=== PATIENT | female | born 1980 | race Caucasian/White ===

== ENCOUNTER 2021-08-28 18:46 | Emergency (ER) | payer SELFPAY ==
--- NOTE | 2021-08-28 20:39 | RAD REPORT ---
EXAM DESCRIPTION: CT - Head Brain Wo Cont - 08/28/2021 8:29 pm CLINICAL HISTORY: SEIZURE COMPARISON: No comparisons TECHNIQUE: Axial 5 mm thick images of the head were obtained without IV contrast. All CT scans are performed using dose optimization technique as appropriate and may include automated exposure control or mA/KV adjustment according to patient size. FINDINGS: No intracranial hemorrhage, mass, edema or shift of mid-line structures. No acute infarcti on changes seen. No abnormal extra-axial fluid collections. Ventricles are normal. Mastoid air cells and visualized portions of the paranasal sinuses are clear. No acute bony findings. IMPRESSION: Negative non-contrast CT head examination.
[2021-08-28 21:00] LABS: Barbiturates NEGATIVE (NEGATIVE); Benzodiazepines NEGATIVE (NEGATIVE); Cocaine NEGATIVE (NEGATIVE); METHAMPHETAM NEGATIVE (NEGATIVE); Methadone NEGATIVE (NEGATIVE); Opiates NEGATIVE (NEGATIVE); Phencyclidine NEGATIVE (NEGATIVE); THC Cannibis POSITIVE (NEGATIVE)
[2021-08-28 21:11] LABS: Absolute Lymphocytes (CBC) 2.8 K/uL (0.7-4.9); Hematocrit 40.6 % (36.0-45.0); Lymphocytes % 23.9 % (15.3-44.8); MPV 9.5 fL (7.6-11.3); RBC Red Blood Cell Count 4.63 M/uL (3.86-4.86)
[2021-08-28 21:16] LABS: Protime INR 0.97
[2021-08-28 21:18] LABS: Urine Blood 2+ (Negative); Urine Glucose Negative (Negative); Urine Protein Negative (Negative); Urine Specific Gravity 1.025 (1.005-1.030); Urine pH 6.5 (5.0-7.0)
[2021-08-28 21:21] LABS: ALT/SGPT 22 U/L (12-78); AST/SGOT 10 U/L (15-37); Albumin 3.9 g/dL (3.4-5.0); Alkaline Phosphatase 121 U/L (45-117); BUN Blood Urea Nitrogen 10 mg/dL (7-18); Bicarbonate 32 mmol/L (21-32); Bilirubin Total 0.2 mg/dL (0.2-1.0); Glucose Level 103 mg/dL (74-106); Protein, Total 7.2 g/dL (6.4-8.2); Sodium Level 138 mmol/L (136-145)
[2021-08-28 21:26] LABS: Bilirubin Direct < 0.1 mg/dL (0-0.2)
[2021-08-28 21:50] LABS: SARS-COV-2 RT PCR NEGATIVE (NEGATIVE)
[2021-08-28 22:21] LABS: Urine Specific Gravity/Preg 1.025 (1.005-1.030)
[2021-08-28] MEDS ORDERED: NA CHLORIDE 0.9% 0 ML ONE (23:32)
[2021-08-28] MEDS ORDERED: KETOROLAC 30 MG/ML INJ ONE (23:32)
[2021-08-28] MEDS ORDERED: ONDANSETRON 4 MG/2 ML VIAL ONE (23:33)
[2021-08-28] MEDS ORDERED: CEFTRIAXONE 1000 MG/VIAL ONE (23:52)
--- NOTE | 2021-08-28 23:57 | EDPHYS ---
Physician Documentation [facility] Name: Gisela Teague Age: 40 yrs Sex: Female : 1980 Arrival Date: 08/28/2021 Time: 18:47 Bed 11 Private MD: ED Physician Naif Barakat HPI: 08/28 20:11 This 40 yrs old Female presents to ER via Ambulatory with complaints of Probable mh7 Seizure. 20:12 The patient presents with a history of multiple seizures, a total of 3. Character of mh7 seizure(s): Loss of consciousness: the patient experienced loss of consciousness, brief, Motor activity: generalized, shaking all over, Incontinence: none, Apnea: the patient did not experience apnea, Circulation: the patient did not experience evidence of pulse disturbance, Eye movements: are unknown. Seizure onset: 2 weeks ago. Context: the seizure(s) was witnessed, by family, , occurred at home, occurred while the patient was lying down, Contributing factors: suspected or documented drug use, marijuana. Seizure Hx: the patient has no previous seizure history. Associated injury: The patient did not suffer any apparent associated injury. Current symptoms: Currently, the patient is not experiencing any symptoms, the patient feels back to baseline. The patient has not experienced similar symptoms in the past. 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 - Social history:: Smoking status: Patient denies any tobacco usage or history of. ROS: 20:12 Constitutional: Negative for fever, chills, and weight loss, Eyes: Negative for injury, mh7 pain, redness, and discharge, ENT: Negative for injury, pain, and discharge, Neck: Negative for injury, pain, and swelling, Cardiovascular: Negative for chest pain, palpitations, and edema, Respiratory: Negative for shortness of breath, cough, wheezing, and pleuritic chest pain, Abdomen/GI: Negative for abdominal pain, nausea, vomiting, diarrhea, and constipation, Back: Negative for injury and pain, : Negative for injury, bleeding, discharge, and swelling, MS/Extremity: Negative for injury and deformity, Skin: Negative for injury, rash, and discoloration, Psych: Negative for depression, anxiety, suicide ideation, homicidal ideation, and hallucinations, Allergy/Immunology: Negative for hives, rash, and allergies, Endocrine: Negative for neck swelling, polydipsia, polyuria, polyphagia, and marked weight changes, Hematologic/Lymphatic: Negative for swollen nodes, abnormal bleeding, and unusual bruising. Exam: 20:12 Constitutional: This is a well developed, well nourished patient who is awake, alert, mh7 and in no acute distress. Head/Face: Normocephalic, atraumatic. Eyes: Pupils equal round and reactive to light, extra-ocular motions intact. Lids and lashes normal. Conjunctiva and sclera are non-icteric and not injected. Cornea within normal limits. Periorbital areas with no swelling, redness, or edema. Neck: Trachea midline, no thyromegaly or masses palpated, and no cervical lymphadenopathy. Supple, full range of motion without nuchal rigidity, or vertebral point tenderness. No Meningismus. Chest/axilla: Normal chest wall appearance and motion. Nontender with no deformity. No lesions are appreciated. Cardiovascular: Regular rate and rhythm with a normal S1 and S2. No gallops, murmurs, or rubs. Normal PMI, no JVD. No pulse deficits. Respiratory: Lungs have equal breath sounds bilaterally, clear to auscultation and percussion. No rales, rhonchi or wheezes noted. No increased work of breathing, no retractions or nasal flaring. Abdomen/GI: Soft, non-tender, with normal bowel sounds. No distension or tympany. No guarding or rebound. No evidence of tenderness throughout. Back: No spinal tenderness. No costovertebral tenderness. Full range of motion. Skin: Warm, dry with normal turgor. Normal color with no rashes, no lesions, and no evidence of cellulitis. MS/ Extremity: Pulses equal, no cyanosis. Neurovascular intact. Full, normal range of motion. Neuro: Awake and alert, GCS 15, oriented to person, place, time, and situation. Cranial nerves II-XII grossly intact. Motor strength 5/5 in all extremities. Sensory grossly intact. Cerebellar exam normal. Normal gait. Psych: Awake, alert, with orientation to person, place and time. Behavior, mood, and affect are within normal limits. Vital Signs: 19:04 BP 134 / 94; Pulse 84; Resp 18; Temp 99(T); Pulse Ox 100% on R/A; Weight 86.55 kg (M); al4 Height 5 ft. 3 in. (160.02 cm) (R); Pain 0/10; 20:09 BP 139 / 90; Pulse 79; Resp 16; Temp 98.9(O); Pulse Ox 100% on R/A; Pain 0/10; fu 22:36 BP 125 / 77; Pulse 66; Resp 16; Temp 97.7(TE); Pulse Ox 95% on R/A; Pain 0/10; fu 23:56 BP 132 / 90; Pulse 84; Resp 16; Pulse Ox 99% on R/A; Pain 0/10; fu 19:04 Body Mass Index 33.80 (86.55 kg, 160.02 cm) al4 Edward Coma Score: 19:08 Eye Response: spontaneous(4). Verbal Response: oriented(5). Motor Response: obeys al4 commands(6). Total: 15. MDM: 23:53 Differential diagnosis: drug overdose, seizure, TIA. Data reviewed: vital signs, nurses [facility] notes, lab test result(s), CBC, electrolytes, urinalysis, urine drug screen, UPT: negative EKG, radiologic studies, CT scan. Data interpreted: Pulse oximetry: on room air is 97 %. Interpretation: normal. Counseling: I had a detailed discussion with the patient and/or guardian regarding: the historical points, exam findings, and any diagnostic results supporting the discharge/admit diagnosis, lab results, radiology results, the need for outpatient follow up, a neurologist, to return to the emergency department if symptoms worsen or persist or if there are any questions or concerns that arise at home. Response to treatment: the patient's symptoms have resolved after treatment, the patient's blood pressure is in an acceptable range, mental status has returned to baseline, the patient no longer shows bradycardia, the patient is not short of breath, the patient is not tachycardic, the patient's pain is gone, the patient's temperature has normalized, the patient is now symptom free. 23:[address] [facility] 08/28 20:11 Order name: Acetaminophen [facility] 08/28 20:11 Order name: Basic Metabolic Panel [facility] 08/28 20:11 Order name: CBC with Diff [facility] 08/28 20:11 Order name: ETOH Level [facility] 08/28 20:11 Order name: Hepatic Function [facility] 08/28 20:11 Order name: PT-INR [facility] 08/28 20:11 Order name: Ptt, Activated [facility] 08/28 20:11 Order name: Salicylate [facility] 08/28 20:11 Order name: Urine Drug Screen; Complete Time: : [facility] 08/28 20:11 Order name: COVID-19/FLU A+B (Document "Date of Onset" if Symptomatic); Complete Time: [facility] :08/28 20:11 Order name: Acetaminophen Level; Complete Time: 23: [facility] 08/28 20:11 Order name: Basic Metabolic Panel; Complete Time: 23: [facility] 08/28 20:11 Order name: CBC with Automated Diff; Complete Time: : [facility] 08/28 20:11 Order name: Alcohol Serum/Plasma; Complete Time: 23: [facility] 08/28 20:11 Order name: EKG; Complete Time: 20:11 [facility] 08/28 20:11 Order name: EKG - Nurse/Tech; Complete Time: 22:25 [facility] 08/28 20:11 Order name: IV Saline Lock; Complete Time: 20:49 [facility] 08/28 20:11 Order name: Labs collected and sent; Complete Time: 20:49 [facility] 08/28 20:11 Order name: Urine Dipstick-Ancillary (obtain specimen); Complete Time: 21:27 [facility] 08/28 20:11 Order name: CT Head Brain wo Cont; Complete Time: 20:57 [facility] 08/28 20:11 Order name: Liver (Hepatic) Function; Complete Time: 23: [facility] 08/28 20:11 Order name: Protime (+INR); Complete Time: 21:23 [facility] 08/28 20:11 Order name: PTT, Activated Partial Thromb; Complete Time: : [facility] 08/28 20:11 Order name: Salicylates Level; Complete Time: 21: [facility] 08/28 21:18 Order name: Urine Dipstick-Ancillary; Complete Time: : [facility] 08/28 21:27 Order name: Urine --Ancillary (enter results); Complete Time: 23:26 mw2 08/28 20:14 Order name: Urine Test (obtain specimen); Complete Time: 21:27 [facility] Administered Medications: 23:40 Not Given (Patient Refused): NS 0.9% 1000 ml IV at 1 bolus Per protocol; 1000 mL bolus fu 23:40 Not Given (Patient Refused): Ketorolac 15 mg IVP once fu 23:41 Not Given (Patient Refused): Zofran (Ondansetron) 4 mg IVP once; over 2 minutes fu 23:55 Drug: Rocephin (cefTRIAXone) 1 grams Route: IV; Rate: per protocol; Site: right fu antecubital; Disposition Summary: 08/28/21 23:56 Discharge Ordered Location: Home [facility] Problem: new [facility] Symptoms: have improved [facility] Condition: Stable [facility] Diagnosis - Cannabis abuse [facility] - Other seizures - Possible [facility] - UTI/ Urinary tract infection, site not specified [facility] Followup: [facility] - With: Private Physician - When: 1 - 2 days - Reason: Worsening of condition, Recheck today's complaints, Continuance of care, Re-evaluation by your physician Followup: [facility] - With: Cam Hart MD - When: 1 - 2 days - Reason: Worsening of condition, Recheck today's complaints Discharge Instructions: - Discharge Summary Sheet [facility] - Cannabis Use Disorder [facility] - Urinary Tract Infection, Adult, [id number] [facility] - Seizure, Adult, [id number] [facility] Forms: - Medication Reconciliation Form [facility] - Thank You Letter [facility] - Antibiotic Education [facility] - Prescription Opioid Use [facility] Prescriptions: - Bactrim DS 800-160 mg Oral Tablet - take 1 tablet by ORAL route every 12 hours for 7 days; 14 tablet; Refills: 0, [facility] Product Selection Permitted Signatures: Dispatcher [employer] EDJose Alfredo James RN RN Naif Aldrich MD MD [facility] Nestor Morrell
--- NOTE | 2021-08-28 23:57 | ER ---
Nurse's Notes [facility] Name: Gisela Teague Age: 40 yrs Sex: Female : 1980 Arrival Date: 08/28/2021 Time: 18:47 Bed 11 Private MD: Diagnosis: Cannabis abuse;Other seizures-Possible;UTI/ Urinary tract infection, site not specified Presentation: 08/28 19:04 Chief complaint: Patient states: "I have had three seizures. This past Friday, al4 yesterday, and two weeks ago on Friday." Patient states no history of seizures. Coronavirus screen: Vaccine status: Patient reports receiving the 2nd dose of the covid vaccine. Moderna. Ebola Screen: No symptoms or risks identified at this time. Initial Sepsis Screen: Does the patient meet any 2 criteria? No. Patient's initial sepsis screen is negative. Does the patient have a suspected source of infection? No. Patient's initial sepsis screen is negative. Risk Assessment: Do you want to hurt yourself or someone else? Patient reports no desire to harm self or others. Onset of symptoms was August 19, 2021. 19:04 Method Of Arrival: Ambulatory al4 19:04 Acuity: JUVENAL 3 al4 Triage Assessment: 19:08 General: Appears in no apparent distress. comfortable, Behavior is calm, cooperative. al4 General:. Pain: Denies pain. EENT: No signs and/or symptoms were reported regarding the EENT system. Denies blurred vision. Neuro: Level of Consciousness is awake, alert, obeys commands, Oriented to person, place, time, situation. Cardiovascular: Capillary refill < 3 seconds Patient's skin is warm and dry. Respiratory: Airway is patent Respiratory effort is even, unlabored, Respiratory pattern is regular, symmetrical. Musculoskeletal: Range of motion: intact in all extremities. 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 - Social history:: Smoking status: Patient denies any tobacco usage or history of. Screenin:45 Abuse screen: Denies threats or abuse. Nutritional screening: No deficits noted. fu Tuberculosis screening: No symptoms or risk factors identified. Fall Risk None identified. Assessment: 19:41 General: Appears in no apparent distress. comfortable, Behavior is calm, cooperative, fu appropriate for age, Denies fever, feeling ill, fatigue, chills. Pain: Denies pain. 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 Gait is steady, Speech is normal, Facial symmetry appears normal. Neuro: Reports 3 seizures last was yesterday.. Cardiovascular: Capillary refill < 3 seconds Chest pain is denied. Respiratory: Respiratory effort is even, unlabored, Respiratory pattern is regular. GI: No signs and/or symptoms were reported involving the gastrointestinal system. Derm: Skin is intact, is healthy with good turgor. 20:40 Reassessment: Patient and/or family updated on plan of care and expected duration. Pain fu level reassessed. Patient is alert, oriented x 3, equal unlabored respirations, skin warm/dry/pink. 21:50 Reassessment: No changes from previously documented assessment. Patient and/or family fu updated on plan of care and expected duration. Pain level reassessed. Patient is alert, oriented x 3, equal unlabored respirations, skin warm/dry/pink. 22:32 Reassessment: Patient and/or family updated on plan of care and expected duration. Pain fu level reassessed. Patient is alert, oriented x 3, equal unlabored respirations, skin warm/dry/pink. 23:30 Reassessment: Patient vomited and complaining of abdominal pain, Dr. Barakat notified fu with verbal order to give Toradol 15mg IV, Zofran 4mg IV and NS IV 1L bolus x1. 23:41 Reassessment: Patient refuse IV Zofran, IV Toradol and IV NS bolus, MD notified. fu Vital Signs: 19:04 BP 134 / 94; Pulse 84; Resp 18; Temp 99(T); Pulse Ox 100% on R/A; Weight 86.55 kg (M); al4 Height 5 ft. 3 in. (160.02 cm) (R); Pain 0/10; 20:09 BP 139 / 90; Pulse 79; Resp 16; Temp 98.9(O); Pulse Ox 100% on R/A; Pain 0/10; fu 22:36 BP 125 / 77; Pulse 66; Resp 16; Temp 97.7(TE); Pulse Ox 95% on R/A; Pain 0/10; fu 23:56 BP 132 / 90; Pulse 84; Resp 16; Pulse Ox 99% on R/A; Pain 0/10; fu 19:04 Body Mass Index 33.80 (86.55 kg, 160.02 cm) al4 Paterson Coma Score: 19:08 Eye Response: spontaneous(4). Verbal Response: oriented(5). Motor Response: obeys al4 commands(6). Total: 15. ED Course: 18:47 Patient arrived in ED. am2 19:08 Triage completed. al4 19:08 Arm band placed on left wrist. al4 19:35 Jose Alfredo Schmitt, JOLLY is Primary Nurse. fu 19:36 Naif Barakat MD is Attending Physician. mh7 19:45 Patient has correct armband on for positive identification. Pulse ox on. NIBP on. fu 20:29 CT Head Brain wo Cont In Process Unspecified. EDMS 20:34 Urine Drug Screen Sent. fu 20:40 Inserted saline lock: 20 gauge in right antecubital area, using aseptic technique. fu Blood collected. 20:49 COVID-19/FLU A+B (Document "Date of Onset" if Symptomatic) Sent. fu 20:49 Acetaminophen Sent. fu 20:49 Basic Metabolic Panel Sent. fu 20:49 CBC with Diff Sent. fu 20:49 ETOH Level Sent. fu 20:49 Hepatic Function Sent. fu 20:49 PT-INR Sent. fu 20:49 Ptt, Activated Sent. fu 20:49 Salicylate Sent. fu 21:30 Seizure precautions initiated. fu 22:37 No provider procedures requiring assistance completed. fu 23:55 Cam Hart MD is Referral Physician. 7 08/29 00:04 IV discontinued, bleeding controlled, Pressure dressing applied. fu Administered Medications: 08/28 23:40 Not Given (Patient Refused): NS 0.9% 1000 ml IV at 1 bolus Per protocol; 1000 mL bolus fu 23:40 Not Given (Patient Refused): Ketorolac 15 mg IVP once fu 23:41 Not Given (Patient Refused): Zofran (Ondansetron) 4 mg IVP once; over 2 minutes fu 23:55 Drug: Rocephin (cefTRIAXone) 1 grams Route: IV; Rate: per protocol; Site: right antecubital; Outcome: 23:56 Discharge ordered by MD. nevarez 08/29 00:04 Discharged to home ambulatory. fu Condition: good Discharge instructions given to patient, Instructed on discharge instructions, follow up and referral plans. Demonstrated understanding of instructions, follow-up care, Prescriptions given X 1. 00:05 Patient left the ED. fu Signatures: Dispatcher [employer] EDJyoti Hernández Felix, RN RN Naif Barakat MD MD 7 Nestor Morrell4
[2021-08-29 02:15] VITALS: TEMP 97.7
[2021-08-29 02:16] VITALS: BP 132/90; O2SAT 99
== END 2021-08-29 00:05 | disposition home or self-care (01) ==
LOC: ER 18:46
DX: F12.10 Cannabis abuse, uncomplicated (principal); N39.0 Urinary tract infection, site not specified; Z20.822 Contact with and (suspected) exposure to COVID-19
CPT/HCPCS: 0240U; 36415; 70450; 80048; 80076; 80307; 80320; 80329; 81003; 81025; 85025; 85610; 85730; 96374; 99284; J2405; J7030

== ENCOUNTER 2021-11-02 21:18 | Emergency (ER) | payer SELFPAY ==
[2021-11-02 22:16] LABS: Absolute Lymphocytes (CBC) 3.2 K/uL (0.7-4.9); Hematocrit 41.4 % (36.0-45.0); Lymphocytes % 31.5 % (15.3-44.8); MPV 9.6 fL (7.6-11.3); RBC Red Blood Cell Count 4.61 M/uL (3.86-4.86)
[2021-11-02 22:24] LABS: Protime INR 0.96
[2021-11-02 22:48] LABS: ALT/SGPT 18 U/L (12-78); AST/SGOT 9 U/L (15-37); Albumin 4.6 g/dL (3.4-5.0); Alkaline Phosphatase 121 U/L (45-117); BUN Blood Urea Nitrogen 7 mg/dL (7-18); Bicarbonate 25 mmol/L (21-32); Bilirubin Direct < 0.1 mg/dL (0-0.2); Bilirubin Total 0.3 mg/dL (0.2-1.0); Glucose Level 98 mg/dL (74-106); Potassium 3.6 mmol/L (3.5-5.1); Protein, Total 7.6 g/dL (6.4-8.2); Sodium Level 136 mmol/L (136-145)
[2021-11-02 23:29] LABS: Urine Blood 1+ (Negative); Urine Glucose Negative (Negative); Urine Protein Negative (Negative)
[2021-11-02] MEDS ORDERED: LORazepam 2 MG/ML VIAL ONE (23:44)
[2021-11-02] MEDS ORDERED: LEVETIRACETAM 500 MG/5 ML VIAL IV ONE (23:47)
[2021-11-02] MEDS ORDERED: NA CHLORIDE 0.9% 100 ML IV ONE ×2 (23:48→23:50)
[2021-11-02 23:55] LABS: Barbiturates NEGATIVE (NEGATIVE); Benzodiazepines NEGATIVE (NEGATIVE); Cocaine NEGATIVE (NEGATIVE); METHAMPHETAM NEGATIVE (NEGATIVE); Methadone NEGATIVE (NEGATIVE); Opiates NEGATIVE (NEGATIVE); Phencyclidine NEGATIVE (NEGATIVE); THC Cannibis POSITIVE (NEGATIVE)
--- NOTE | 2021-11-03 04:03 | ER ---
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 Pt states she has had 2 prior seizures in August, states her insurance starts on november 04 and she is waiting for it to kick in so that she can go see a neurologist. Coronavirus screen: Vaccine status: Patient reports receiving the 2nd dose of the covid vaccine. At this time, the client does not indicate any symptoms associated with coronavirus-19. Ebola Screen: No symptoms or risks identified at this time. Initial Sepsis Screen: Does the patient meet any 2 criteria? No. Patient's initial sepsis screen is negative. Does the patient have a suspected source of infection? No. Patient's initial sepsis screen is negative. Risk Assessment: Do you want to hurt yourself or someone else? Patient reports no desire to harm self or others. Onset of symptoms was November 02, 2021. Care prior to arrival: Glucose check: 105. Activity prior to arrival: seizure. 21:34 Method Of Arrival: EMS: [facility] ll3 21:34 Acuity: JUVENAL 3 ll3 Triage Assessment: 21:44 General: Appears in no apparent distress. comfortable, Behavior is calm, cooperative. ll3 Pain: Denies pain. EENT: Oral mucosa is moist. Pt denies any tongue pain, denies biting tongue.. Neuro: Level of Consciousness is awake, alert, obeys commands, Oriented to person, place, time, situation, Seizure activity reported prior to arrival. Seizure lasted approximately 15 minutes. States has had 2 prior seizures in August, denies any memory of this seizure today. Neuro: Denies dizziness, difficulty swallowing. Respiratory: Airway is patent Respiratory effort is even, unlabored, Respiratory pattern is regular, symmetrical. Derm: Skin is pink, warm \T\ dry. 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 - Social history:: Smoking status: Patient denies any tobacco usage or history of. Patient uses street drugs, marijuana. Screenin:55 Abuse screen: Denies threats or abuse. Nutritional screening: No deficits noted. ll3 Tuberculosis screening: No symptoms or risk factors identified. 21:55 Fall Risk Fall in past 12 months (25 points). Secondary diagnosis (15 points) seizures, vc1 IV access (20 points). Ambulatory Aid- None/Bed Rest/Nurse Assist (0 pts). Gait- Normal/Bed Rest/Wheelchair (0 pts) Mental Status- Oriented to own ability (0 pts). Total Jefferson Fall Scale indicates High Risk Score (45 or more points). Fall prevention measures have been instituted. Side Rails Up X 2 Frequent Obs/Assessments Occuring. Assessment: 21:49 General: See triage assessment.. ll3 22:30 Reassessment: Patient and/or family updated on plan of care and expected duration. Pain vc1 level reassessed. Patient is alert, oriented x 3, equal unlabored respirations, skin warm/dry/pink. 23:48 Reassessment:. Neuro: Seizure activity noted at this time. vc1 11/03 00:00 Reassessment: Patient and/or family updated on plan of care and expected duration. Pain vc1 level reassessed. Neuro: Seizure activity Patient is post-ictal at this time. 01:01 Reassessment: Patient had an incontinent episode, total bed change, clean, pat dry. ag7 brief applied. 02:00 Reassessment: Patient and/or family updated on plan of care and expected duration. Pain vc1 level reassessed. Patient states symptoms have improved. 03:00 Reassessment: Patient and/or family updated on plan of care and expected duration. Pain vc1 level reassessed. Patient states symptoms have improved. Neuro: Level of Consciousness is obeys commands, lethargic, Oriented to person, place, time, situation, Appropriate for age. Vital Signs: 11/02 21:34 BP 112 / 89; Pulse 87; Resp 13; Temp 97.7(O); Pulse Ox 95% on R/A; Weight 77.11 kg (R); ll3 Height 5 ft. 3 in. (160.02 cm) (R); Pain 0/10; 22:00 BP 129 / 84; Pulse 85; Resp 15; Pulse Ox 97% on R/A; vc1 23:00 BP 116 / 74; Pulse 97; Resp 19; Pulse Ox 98% on R/A; vc1 11/03 00:00 BP 106 / 55; Pulse 97; Resp 18; Pulse Ox 96% on 2 lpm NC; vc1 00:30 BP 108 / 69; Pulse 95; Resp 17; Pulse Ox 97% on 2 lpm NC; vc1 01:30 BP 107 / 73; Pulse 72; Resp 19; Pulse Ox 97% on R/A; vc1 02:30 BP 100 / 49; Pulse 70; Resp 18; Pulse Ox 97% on R/A; vc1 03:19 BP 117 / 75; Pulse 68; Resp 17; Pulse Ox 99% on R/A; vc1 11/02 21:34 Body Mass Index 30.11 (77.11 kg, 160.02 cm) ll3 Edward Coma Score: 11/02 21:44 Eye Response: spontaneous(4). Verbal Response: oriented(5). Motor Response: obeys ll3 commands(6). Total: 15. ED Course: 21:27 Patient arrived in ED. wm 21:30 Gio Holley RN is Primary Nurse. ll3 21:31 Naif Barakat MD is Attending Physician. mh7 21:44 Triage completed. ll3 21:44 Arm band placed on Patient placed in an exam room, on a stretcher, on reefer engineer, ll3 on pulse oximetry. 21:54 Patient has correct armband on for positive identification. Bed in low position. Call ll3 light in reach. Side rails up X2. Seizure precautions initiated. 22:35 CT Head Brain wo Cont In Process Unspecified. EDMS 23:30 Urine Drug Screen Sent. ag7 11/03 04:01 Cam Hart MD is Referral Physician. 7 04:17 IV discontinued, intact, bleeding controlled, No redness/swelling at site. Pressure ag7 dressing applied. 04:17 No provider procedures requiring assistance completed. ag7 Administered Medications: 11/02 23:49 Drug: Ativan (LORazepam) 2 mg Route: IVP; Site: right antecubital; vc1 11/03 00:00 Follow up: Response: No adverse reaction; Marked relief of symptoms; RASS: Deep vc1 sedation (-4); RASS: Deep sedation (-4) Seizure activity has stopped. 11/02 23:50 Drug: Keppra (levETIRAcetam) 1000 mg Route: IV; Rate: per protocol; Site: right wrist; la1 Outcome: 11/03 04:02 Discharge ordered by . 7 04:17 Discharged to home ambulatory. ag7 04:17 Condition: stable 04:17 Discharge instructions given to patient, Instructed on discharge instructions, follow up and referral plans. medication usage, Demonstrated understanding of instructions, follow-up care, medications, Prescriptions given X 1. 04:18 Patient left the ED. 7 Signatures: Dispatcher [employer] EDMS Jax Lyons, SIGN SHOP SUPERVISOR-C SIGN SHOP SUPERVISOR-Cla1 Naif Barakat MD MD 7 Tona Ricks Lynsea, RN RN ll3 Chely Milan RN RN vc1 Eveline Rock RN RN 7 Corrections: (The following items were deleted from the chart) 01:16 01:13 Reassessment: 1 vc1
--- NOTE | 2021-11-03 04:03 | EDPHYS ---
Physician Documentation [facility] Name: Gisela Teague Age: 41 yrs Sex: Female : 1980 Arrival Date: 11/02/2021 Time: 21:27 Bed 4 Private MD: ED Physician Naif Barakat HPI: 11/02 21:53 This 41 yrs old Female presents to ER via EMS with complaints of Seizure. mh7 21:53 The patient presents after having a single isolated seizure, that lasted an unknown mh7 period of time. Character of seizure(s): Loss of consciousness: the patient experienced loss of consciousness, during seizure(s), Motor activity: generalized, shaking all over, Incontinence: none, Apnea: the patient did not experience apnea, Circulation: the patient did not experience evidence of pulse disturbance, Eye movements: are unknown. Seizure onset: just prior to arrival, today. Context: the seizure(s) was witnessed, by a bystander, occurred at work, occurred while the patient was standing, Contributing factors: suspected or documented drug use, marijuana. Seizure Hx: Original onset: 2 month(s) ago. Associated injury: The patient did not suffer any apparent associated injury. EMS care: none. Current symptoms: Currently, the patient is not experiencing any symptoms, the patient feels back to baseline. The patient has experienced similar episodes in the past, a few times. Witnessed seizure while at work today. She states they started 2 months ago. Denies any complaints at this time or prior to episode.. 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 - Social history:: Smoking status: Patient denies any tobacco usage or history of. Patient uses street drugs, marijuana. ROS: 21:53 Constitutional: Negative for fever, chills, and weight loss, Eyes: Negative for injury, mh7 pain, redness, and discharge, ENT: Negative for injury, pain, and discharge, Neck: Negative for injury, pain, and swelling, Cardiovascular: Negative for chest pain, palpitations, and edema, Respiratory: Negative for shortness of breath, cough, wheezing, and pleuritic chest pain, Abdomen/GI: Negative for abdominal pain, nausea, vomiting, diarrhea, and constipation, Back: Negative for injury and pain, : Negative for injury, bleeding, discharge, and swelling, MS/Extremity: Negative for injury and deformity, Skin: Negative for injury, rash, and discoloration, Psych: Negative for depression, anxiety, suicide ideation, homicidal ideation, and hallucinations, Allergy/Immunology: Negative for hives, rash, and allergies, Endocrine: Negative for neck swelling, polydipsia, polyuria, polyphagia, and marked weight changes, Hematologic/Lymphatic: Negative for swollen nodes, abnormal bleeding, and unusual bruising. 21:53 Neuro: Negative for dizziness, gait disturbance, headache, hearing loss, numbness, speech changes, syncope, near syncope, tingling, tinnitus, tremor, visual changes, weakness. Exam: 21:53 Constitutional: This is a well developed, well nourished patient who is awake, alert, mh7 and in no acute distress. Head/Face: Normocephalic, atraumatic. Eyes: Pupils equal round and reactive to light, extra-ocular motions intact. Lids and lashes normal. Conjunctiva and sclera are non-icteric and not injected. Cornea within normal limits. Periorbital areas with no swelling, redness, or edema. Neck: Trachea midline, no thyromegaly or masses palpated, and no cervical lymphadenopathy. Supple, full range of motion without nuchal rigidity, or vertebral point tenderness. No Meningismus. Chest/axilla: Normal chest wall appearance and motion. Nontender with no deformity. No lesions are appreciated. Cardiovascular: Regular rate and rhythm with a normal S1 and S2. No gallops, murmurs, or rubs. Normal PMI, no JVD. No pulse deficits. Respiratory: Lungs have equal breath sounds bilaterally, clear to auscultation and percussion. No rales, rhonchi or wheezes noted. No increased work of breathing, no retractions or nasal flaring. Abdomen/GI: Soft, non-tender, with normal bowel sounds. No distension or tympany. No guarding or rebound. No evidence of tenderness throughout. Back: No spinal tenderness. No costovertebral tenderness. Full range of motion. Skin: Warm, dry with normal turgor. Normal color with no rashes, no lesions, and no evidence of cellulitis. MS/ Extremity: Pulses equal, no cyanosis. Neurovascular intact. Full, normal range of motion. Neuro: Awake and alert, GCS 15, oriented to person, place, time, and situation. Cranial nerves II-XII grossly intact. Motor strength 5/5 in all extremities. Sensory grossly intact. Cerebellar exam normal. Normal gait. Psych: Awake, alert, with orientation to person, place and time. Behavior, mood, and affect are within normal limits. Vital Signs: 21:34 BP 112 / 89; Pulse 87; Resp 13; Temp 97.7(O); Pulse Ox 95% on R/A; Weight 77.11 kg (R); ll3 Height 5 ft. 3 in. (160.02 cm) (R); Pain 0/10; 22:00 BP 129 / 84; Pulse 85; Resp 15; Pulse Ox 97% on R/A; vc1 23:00 BP 116 / 74; Pulse 97; Resp 19; Pulse Ox 98% on R/A; vc1 11/03 00:00 BP 106 / 55; Pulse 97; Resp 18; Pulse Ox 96% on 2 lpm NC; vc1 00:30 BP 108 / 69; Pulse 95; Resp 17; Pulse Ox 97% on 2 lpm NC; vc1 01:30 BP 107 / 73; Pulse 72; Resp 19; Pulse Ox 97% on R/A; vc1 02:30 BP 100 / 49; Pulse 70; Resp 18; Pulse Ox 97% on R/A; vc1 03:19 BP 117 / 75; Pulse 68; Resp 17; Pulse Ox 99% on R/A; vc1 11/02 21:34 Body Mass Index 30.11 (77.11 kg, 160.02 cm) ll3 Oxford Coma Score: 11/02 21:44 Eye Response: spontaneous(4). Verbal Response: oriented(5). Motor Response: obeys ll3 commands(6). Total: 15. MDM: 11/03 03:58 Differential diagnosis: drug overdose, seizure, pseudo seizures. Data reviewed: vital 7 signs, nurses notes, EMS record, lab test result(s), CBC, electrolytes, urinalysis, urine drug screen, radiologic studies, CT scan. Data interpreted: Pulse oximetry: on room air is 99 %. Interpretation: normal. Counseling: I had a detailed discussion with the patient and/or guardian regarding: the historical points, exam findings, and any diagnostic results supporting the discharge/admit diagnosis, lab results, radiology results, the need for outpatient follow up, a neurologist, to return to the emergency department if symptoms worsen or persist or if there are any questions or concerns that arise at home. Response to treatment: the patient's symptoms have resolved after treatment, the patient's blood pressure is in an acceptable range, mental status has returned to baseline, the patient no longer shows bradycardia, the patient is not short of breath, the patient is not tachycardic, the patient's pain is gone, the patient's temperature has normalized. ED course: Feels better, well appearing, NAD, VSS, No focal neurological deficits. AA \T\ Ox4, appropriate. Patient had a witnessed seizure in the ED. She is back to baseline and requests to be discharged from the ED.. 04:02 Patient medically screened. [facility] 11/02 21:41 Order name: Acetaminophen; Complete Time: 23:36 [facility] 11/02 21:41 Order name: Basic Metabolic Panel; Complete Time: 23:36 [facility] 11/02 21:41 Order name: CBC with Diff; Complete Time: 23:36 [facility] 11/02 21:41 Order name: ETOH Level; Complete Time: 23:36 [facility] 11/02 21:41 Order name: Hepatic Function; Complete Time: 23:36 [facility] 11/02 21:41 Order name: PT-INR; Complete Time: 23:36 [facility] 11/02 21:41 Order name: Ptt, Activated; Complete Time: 23:36 [facility] 11/02 21:41 Order name: Salicylate; Complete Time: 23:36 [facility] 11/02 21:41 Order name: Urine Drug Screen; Complete Time: 23:56 [facility] 11/02 21:52 Order name: CT Head Brain wo Cont [facility] 11/02 23:29 Order name: Urine Dipstick-Ancillary; Complete Time: 23:36 [facility] 11/02 23:30 Order name: Urine --Ancillary (enter results); Complete Time: 23:50 11/02 21:41 Order name: EKG; Complete Time: 21:42 [facility] 11/02 21:41 Order name: EKG - Nurse/Tech; Complete Time: 23:13 [facility] 11/02 21:41 Order name: IV Saline Lock; Complete Time: 22:20 [facility] 11/02 21:41 Order name: Labs collected and sent; Complete Time: 22:20 [facility] 11/02 21:41 Order name: Suicide Screening ([place]); Complete Time: 23:29 [facility] 11/02 21:41 Order name: Urine Dipstick-Ancillary (obtain specimen); Complete Time: 23:30 [facility] 11/02 21:41 Order name: Urine Test (obtain specimen); Complete Time: 23:30 [facility] Administered Medications: 11/02 23:49 Drug: Ativan (LORazepam) 2 mg Route: IVP; Site: right antecubital; vc1 11/03 00:00 Follow up: Response: No adverse reaction; Marked relief of symptoms; RASS: Deep vc1 sedation (-4); RASS: Deep sedation (-4) Seizure activity has stopped. 11/02 23:50 Drug: Keppra (levETIRAcetam) 1000 mg Route: IV; Rate: per protocol; Site: right wrist; la1 Disposition Summary: 11/03/21 04:02 Discharge Ordered Location: Home [facility] Problem: an ongoing problem [facility] Symptoms: have improved [facility] Condition: Stable [facility] Diagnosis - Other seizures [facility] Followup: [facility] - With: Private Physician - When: 1 - 2 days - Reason: Worsening of condition, Recheck today's complaints, Continuance of care, Re-evaluation by your physician Followup: [facility] - With: Cam Hart MD - When: 1 - 2 days - Reason: Worsening of condition, Recheck today's complaints Discharge Instructions: - Discharge Summary Sheet [facility] - Seizure, Adult, [id number] [facility] Forms: - Medication Reconciliation Form [facility] - Thank You Letter [facility] - Antibiotic Education [facility] - Prescription Opioid Use [facility] Prescriptions: - Keppra 500 mg Oral Tablet - take 1 tablet by ORAL route every 12 hours; 20 tablet; Refills: 0, Product [facility] Selection Permitted Signatures: Dispatcher [employer] EDMS Jax Lyons FNP-C AIR GUN OPERATOR-Cla1 Naif Barakat MD MD [facility] Loubet, Lynsea, RN RN ll3 Calcote, Chely, RN RN vc1
[2021-11-03 04:35] VITALS: TEMP 97.7
[2021-11-03 04:45] VITALS: BP 117/75; O2SAT 99
--- NOTE | 2021-11-03 19:23 | RAD REPORT ---
EXAM DESCRIPTION: CT - Head Brain Wo Cont - 11/03/2021 12:51 am CLINICAL HISTORY: 41 years, Female, Seizure, generalized, normal neuro exam COMPARISON: 08/28/2021 FINDINGS: Multiple transaxial tomograms of the brain were obtained from the base of the skull to the vertex without contrast. 2-D multiplanar reformats and the coronal and sagittal plane were performed and reviewed. This exam was performed according to our departmental dose-optimization protocol, which includes auto mated exposure control, adjustment of the mA and/or kV according to patient size and/or use of iterat claudia reconstruction technique. Brain parenchyma as well as the barrett and white matter differentiation demonstrate to be unremarkable. There is no midline shift and/or mass effect. There is no evidence for acute hemorrhage and/or infar ction. Lateral ventricles and cisterns displace normal appearance. No intra or extra axial fluid collections were seen. The calvarium is intact with no evidence for fracture. The visualized portions of the paranasal sinuses and orbits demonstrate to be clear. IMPRESSION: NO ACUTE INTRACRANIAL HEMORRHAGE. GROSSLY UNREMARKABLE CT SCAN OF THE HEAD WITHOUT CONTRAST. Electronically signed by: Carlos Ott MD 11/02/2021 11:07 PM CDT Due to temporary technical issues with the PACS/Fluency reporting system, reports are being signed by the in house radiologists without review as a courtesy to insure prompt reporting. The interpreting radiologist is fully responsible for the content of the report.
== END 2021-11-03 04:18 | disposition home or self-care (01) ==
LOC: ER 21:18
DX: G40.89 Other seizures (principal)
CPT/HCPCS: 36415; 70450; 80048; 80076; 80307; 80320; 80329; 81003; 81025; 85025; 85610; 85730; 93005; 99284; J1953

== ENCOUNTER 2023-04-12 15:42 | Emergency (ER) | payer OTHER ==
[2023-04-12] MEDS ORDERED: METHYLPREDNISOLONE 125 MG INJ ONE (16:12)
[2023-04-12] MEDS ORDERED: FAMOTIDINE 20 MG/2 ML VIAL IV ONE (16:12)
[2023-04-12] MEDS ORDERED: NA CHLORIDE 0.9% 1,000 ML ONE (16:12)
[2023-04-12] MEDS ORDERED: DIPHENHYDRAMINE 50 MG/ML VIAL ONE (16:12)
--- NOTE | 2023-04-12 17:02 | EDPHYS ---
Physician Documentation [facility] Name: Gisela Teague Age: 42 yrs Sex: Female : 1980 Arrival Date: 04/12/2023 Time: 15:42 Bed 8 Private MD: ED Physician Azeem Parson HPI: 04/12 16:09 This 42 yrs old Female presents to ER via Ambulatory with complaints of Throat problem. sb4 17:07 Patient states that she was eating some cashews when she started to feel her face and sb4 neck swell, a similar sensation to eat something sour. She states that she has eaten cashews in the past without any issues. She denies any difficulty breathing or feeling like her throat is closing but just like her neck is swollen. She did not take any medications prior to arrival. Historical: - Allergies: 15:57 No Known Allergies; hb - Home Meds: 15:57 oxcarbazepine oral [Active]; hb - PMHx: 15:57 Seizure; X2; hb - PSHx: 15:57 None; hb - Immunization history:: Adult Immunizations up to date. - Social history:: Smoking status: Patient denies any tobacco usage or history of. ROS: 17:07 Constitutional: Negative for fever, chills, and weight loss, sb4 17:07 ENT: Positive for Neck swelling, 17:07 All other systems are negative, Exam: 17:07 Constitutional: This is a well developed, well nourished patient who is awake, alert, sb4 and in no acute distress. Head/Face: Normocephalic, atraumatic. Eyes: Extra-ocular motions intact. Periorbital areas with no swelling, redness, or edema. ENT: Mucous membranes moist. Cardiovascular: Regular rate and rhythm with a normal S1 and S2. Respiratory: Lungs have equal breath sounds bilaterally, clear to auscultation and percussion. No rales, rhonchi or wheezes noted. No increased work of breathing, no retractions or nasal flaring. Abdomen/GI: Soft, non-tender, no distension. Skin: Warm, dry with normal turgor. Normal color with no rashes, no lesions, and no evidence of cellulitis. MS/ Extremity: Pulses equal, no cyanosis. Neurovascular intact. Full, normal range of motion. Neuro: Awake and alert, GCS 15, oriented to person, place, time, and situation. Motor strength 5/5 in all extremities. Sensory grossly intact. 17:07 ENT: Posterior pharynx: no acute changes, Airway: normal, no evidence of obstruction, patent, Tonsils: are normal in appearance, no enlargement, no erythema, Uvula: normal, midline, non-edematous, no erythema, 17:07 Neck: External neck: swelling, that is moderate, of the right anterior aspect of neck and left anterior aspect of neck, Vital Signs: 15:55 BP 151 / 114; Pulse 88; Resp 18; Temp 98; Pulse Ox 100% on R/A; Weight 101.15 kg; hb Height 5 ft. 3 in. ; Pain 3/10; 17:13 BP 125 / 87; Pulse 78; Resp 18; Temp 97.9; Pulse Ox 99% on R/A; ph 15:55 Body Mass Index 39.50 (101.15 kg, 160.02 cm) hb 15:55 Pain Scale: Adult hb MDM: 15:54 Patient medically screened. sb4 17:07 Differential diagnosis: Angioedema, anaphylaxis, cellulitis, allergic reaction. Data sb4 reviewed: vital signs, nurses notes, and as a result, I will discharge patient. Consideration of Admission/Observation Escalation of care including admission/observation considered. Counseling: I had a detailed discussion with the patient and/or guardian regarding the historical points, exam findings, and any diagnostic results supporting the discharge/admit diagnosis, to return to the emergency department if symptoms worsen or persist or if there are any questions or concerns that arise at home. 04/12 15:54 Order name: IV Saline Lock; Complete Time: 15:58 sb4 Administered Medications: 16:09 Drug: NS 0.9% IV 1000 ml IV at 1 bolus Per protocol; 1000 mL bolus Route: IV; Rate: 1 ph bolus; Site: left antecubital; 17:13 Follow up: Response: No adverse reaction; IV Status: Completed infusion; IV Intake: ph 1000ml 16:09 Drug: MethylPrednisoLONE IVP 125 mg IVP once Route: IVP; Site: left antecubital; ph 17:13 Follow up: Response: No adverse reaction ph 16:09 Drug: Famotidine IVP 20 mg IVP once; dilute with 10 mL 0.9% NaCl; give over 2 minutes ph Route: IVP; Site: left antecubital; 17:13 Follow up: Response: No adverse reaction ph 16:09 Drug: diphenhydrAMINE IVP 25 mg IVP once Route: IVP; Site: left antecubital; ph 17:13 Follow up: Response: No adverse reaction ph Disposition: 17:20 Co-signature as Attending Physician, Azeem Parson MD I reviewed the patient's care rt provided by the Advanced Practice Provider and agree with the diagnosis and treatment plan. Disposition Summary: 04/12/23 17:02 Discharge Ordered Notes: Location: Home sb4 Problem: new sb4 Symptoms: have improved sb4 Condition: Stable sb4 Diagnosis - Allergy to other foods sb4 - Localized swelling, mass and lump, neck sb4 Followup: sb4 - With: Emergency Department - When: As needed - Reason: Trouble breathing, Worsening of condition Discharge Instructions: - Discharge Summary Sheet sb4 - Food Allergy sb4 - Angioedema sb4 Forms: - Medication Reconciliation Form sb4 - Thank You Letter sb4 - Antibiotic Education sb4 - Prescription Opioid Use sb4 - Patient Portal Instructions sb4 - Leadership Thank You Letter sb4 Prescriptions: - Prednisone 20 mg Oral Tablet - take 1 tablet ORAL route once daily for 5 days; 5 tablet; Refills: 0, Product sb4 Selection Permitted - Pepcid 20 mg Oral Tablet - take 1 tablet ORAL route once daily; 20 tablet; Refills: 0, Product Selection sb4 Permitted Signatures: Bee Mcnally RN RN Evelin Hester RN RN Oksana Armendariz PA-C PA-C sb4 Azeem Parson MD MD rt Corrections: (The following items were deleted from the chart) 15:58 15:57 Home Meds: None; hb hb
--- NOTE | 2023-04-12 17:02 | ER ---
Nurse's Notes [facility] Name: Gisela Teague Age: 42 yrs Sex: Female : 1980 Arrival Date: 04/12/2023 Time: 15:42 Bed 8 Private MD: Diagnosis: Allergy to other foods;Localized swelling, mass and lump, neck Presentation: 04/12 15:55 Chief complaint: Facial swelling after eating cashews 1 hour [employer]. Coronavirus screen: hb At this time, the client does not indicate any symptoms associated with coronavirus-19. Ebola Screen: No symptoms or risks identified at this time. Initial Sepsis Screen: Does the patient meet any 2 criteria? No. Patient's initial sepsis screen is negative. Does the patient have a suspected source of infection? No. Patient's initial sepsis screen is negative. Risk Assessment: Do you want to hurt yourself or someone else? Patient reports no desire to harm self or others. Onset of symptoms was April 12, 2023. 15:55 Method Of Arrival: Ambulatory hb 15:55 Acuity: JUVENAL 3 hb Historical: - Allergies: 15:57 No Known Allergies; hb - Home Meds: 15:57 oxcarbazepine oral [Active]; hb - PMHx: 15:57 Seizure; X2; hb - PSHx: 15:57 None; hb - Immunization history:: Adult Immunizations up to date. - Social history:: Smoking status: Patient denies any tobacco usage or history of. Screenin:14 [facility] ED Fall Risk Assessment (Adult) History of falling in the last 3 months, ph including since admission No falls in past 3 months (0 pts) Altered Elimination No (0 pt). Abuse screen: Denies threats or abuse. Has been threatened or abused. Nutritional screening: No deficits noted. Tuberculosis screening: No symptoms or risk factors identified. Assessment: 16:10 General: Appears in no apparent distress. Behavior is calm, cooperative. General: ph Denies fever. Pain: Complains of pain in left anterior aspect of neck and right anterior aspect of neck. Neuro: Level of Consciousness is awake, alert, obeys commands, Oriented to person, place, time, situation. Cardiovascular: Capillary refill < 3 seconds in bilateral fingers. Respiratory: Airway is patent Respiratory effort is even, unlabored, Breath sounds are clear bilaterally. Denies shortness of breath. GI: No signs and/or symptoms were reported involving the gastrointestinal system. Derm: Skin is pink, warm \T\ dry. Musculoskeletal: Swelling present in left anterior aspect of neck and right anterior aspect of neck. Vital Signs: 15:55 BP 151 / 114; Pulse 88; Resp 18; Temp 98; Pulse Ox 100% on R/A; Weight 101.15 kg; hb Height 5 ft. 3 in. ; Pain 3/10; 17:13 BP 125 / 87; Pulse 78; Resp 18; Temp 97.9; Pulse Ox 99% on R/A; ph 15:55 Body Mass Index 39.50 (101.15 kg, 160.02 cm) hb 15:55 Pain Scale: Adult hb ED Course: 15:47 Patient arrived in ED. mr 15:50 Oksana Greenfield PA-C is PHCP. sb4 15:50 Azeem Parson MD is Attending Physician. sb4 15:57 Triage completed. hb 15:58 Arm band placed on. hb 16:00 Patient has correct armband on for positive identification. Bed in low position. Call ph light in reach. Side rails up X 1. 16:00 Inserted saline lock: 22 gauge in left antecubital area, using aseptic technique. ph 17:13 Bee Mcnally, RN is Primary Nurse. ph 17:14 No provider procedures requiring assistance completed. IV discontinued, intact, ph bleeding controlled, No redness/swelling at site. Pressure dressing applied. Administered Medications: 16:09 Drug: NS 0.9% IV 1000 ml IV at 1 bolus Per protocol; 1000 mL bolus Route: IV; Rate: 1 ph bolus; Site: left antecubital; 17:13 Follow up: Response: No adverse reaction; IV Status: Completed infusion; IV Intake: ph 1000ml 16:09 Drug: MethylPrednisoLONE IVP 125 mg IVP once Route: IVP; Site: left antecubital; ph 17:13 Follow up: Response: No adverse reaction ph 16:09 Drug: Famotidine IVP 20 mg IVP once; dilute with 10 mL 0.9% NaCl; give over 2 minutes ph Route: IVP; Site: left antecubital; 17:13 Follow up: Response: No adverse reaction ph 16:09 Drug: diphenhydrAMINE IVP 25 mg IVP once Route: IVP; Site: left antecubital; ph 17:13 Follow up: Response: No adverse reaction ph Medication: 17:14 VIS not applicable for this client. ph Intake: 17:13 IV: 1000ml; Total: 1000ml. ph Outcome: 17:02 Discharge ordered by MD. angel 17:16 Discharged to home ambulatory, ph 17:16 Condition: good 17:16 Discharge instructions given to patient, Instructed on discharge instructions, follow up and referral plans. medication usage, Demonstrated understanding of instructions, follow-up care, medications, Prescriptions given X 2, 17:16 Patient left the ED. ph Signatures: Yeni Ramires, Reg Reg mr Bee Mcnally, RN RN ph Evelin Hester RN RN hb Oksana Greenfield, PA-C PAFreya angel Corrections: (The following items were deleted from the chart) 15:58 15:57 Home Meds: None; hb hb
[2023-04-12 17:47] VITALS: BP 125/87; TEMP 97.9; O2SAT 99
== END 2023-04-12 17:16 | disposition home or self-care (01) ==
LOC: ER 15:42
DX: R22.1 Localized swelling, mass and lump, neck (principal); T78.1XXA Other adverse food reactions, not elsewhere classified, initial encounter
CPT/HCPCS: 96361; 96375; 96374; 99284; J1200; J2930; J7030